=== PATIENT | male | born 1970 | race African-American/Black ===

== ENCOUNTER 2019-07-27 17:49 | Inpatient (IN) | payer OTHER ==
[2019-07-27 23:12] VITALS: BMI 29.9
[2019-07-28] MEDS ORDERED: chlordiazePOXIDE HCL 25 MG CAPSULE PO PRN (00:52)
[2019-07-28] MEDS ORDERED: METHOCARBAMOL 500 MG TABLET PO PRN (00:52)
[2019-07-28] MEDS ORDERED: MAGNESIUM HYDROX 2400MG/30ML ORAL SUSPENSION 30 ML CUP PO PRN (00:52)
[2019-07-28] MEDS ORDERED: BISMUTH SUBSALICYLATE 524 MG/30 ML UD PO PRN (00:52)
[2019-07-28] MEDS ORDERED: ACETAMINOPHEN 325 MG TABLET (FP) PO PRN ×2 (00:52)
[2019-07-28] MEDS ORDERED: hydrOXYzine PAMOATE 25 MG CAPSULE (FP) PO PRN (00:52)
[2019-07-28] MEDS ORDERED: MELATONIN 5 MG TABLETS PO PRN (00:52)
[2019-07-28] MEDS ORDERED: guaiFENesin 200 MG/10 ML 10 ML UNIT-DOSE CUPS PO PRN (00:52)
[2019-07-28] MEDS ORDERED: DICYCLOMINE HCL 10 MG CAPSULE PO PRN (00:52)
[2019-07-28] MEDS ORDERED: MAGNESIUM CITRATE 300 ML BOTTLE PO PRN (00:52)
[2019-07-28] MEDS ORDERED: MENTHOL/PHENOL 1 EACH UD MM PRN (00:52)
[2019-07-28] MEDS ORDERED: MAG HYDROX/AL HYDROX/SIMETH 30 ML UNIT-DOSE CUP PO PRN (00:52)
[2019-07-28] MEDS ORDERED: IBUPROFEN 400 MG TABLET (FP) PO PRN (00:52)
[2019-07-28] MEDS ORDERED: NICOTINE POLACRILEX 2 MG GUM BUC PRN (00:52)
[2019-07-28] MEDS ORDERED: ONDANSETRON *ODT* 4 MG TABLET SL PRN (00:52)
[2019-07-28] MEDS ORDERED: P-EPHED 60MG/TRIPROLIDI 2.5MG TABLET PO PRN (00:52)
--- NOTE | 2019-07-28 01:03 | HP ---
CIWA Score Nausea/Vomitin-No Nausea/No Vomiting Muscle Tremors: None Anxiety: 4-Mod. Anxious/Guarded Agitation: 4-Moderately Restless Paroxysmal Sweats: No Perspiration Orientation: 2-Disoriented Date<2 days Tacttile Disturbances: 2-Mild Itch/Numbness/Burn Auditory Disturbances: 0-None Visual Disturbances: 0-None Headache: 0-None Present CIWA-Ar Total Score: 12 - Admission Criteria OASAS Guidelines: Admission for Medically Managed Detox: Requires at least one of the followin. CIWA greater than 12 2. Seizures within the past 24 hours 3. Delirium tremens within the past 24 hours 4. Hallucinations within the past 24 hours 5. Acute intervention needed for co occurring medical disorder 6. Acute intervention needed for co occurring psychiatric disorder 7. Severe withdrawal that cannot be handled at a lower level of care (continued vomiting, continued diarrhea, abnormal vital signs) requiring intravenous medication and/or fluids 8. Patient presents the following: CIWA greater than 12 Admission Criteria Met: Admission criteria met Admission ROS [facility] Chief Complaint: C/O WORSENING WITHDRAWAL SX'S Allergies/Adverse Reactions: Allergies Allergy/AdvReac Type Severity Reaction Status Date / Time No Known Allergies Allergy Verified 07/27/19 23:04 History of Present Illness: 48 Y.O. MALE WITH ALCOHOLISM HERE FOR DETOX. HE IS REFERRED BY [facility]. HE PRESENTS WITH C/O WORSENING WITHDRAWAL SX'S. HIS HX/O IS CONFLICTING INITIALLY SAID HE WAS SEEKING REHAB THEN NOW HE WANTS DETOX. HE ALSO STATED HE DRINK ABOUT 3 TIME A WEEK MORNINGS ONLY THEN LATER STATING HE DRINKS DAILY. HE HAS HX/O SCHIZOPHRENIA DENIES PRESENT AVH, SI, HI. MOST RECENT CLEAN TIME 3 YEARS RELAPSING 03/2019. CURRENTLY LIVES IN A HALF-WAY, LACKS SUPPORT SYSTEMS, UNEMPLOYED, DENIES LEGALS Exam Limitations: No Limitations - Ebola screening Have you traveled outside of the country in the last 21 days: No (N) Have you had contact with anyone from an Ebola affected area: No Do you have a fever: No - Review of Systems Constitutional: Chills, Night Sweats, Changes in sleep EENT: reports: Other (EYE GLASSES) Respiratory: reports: No Symptoms reported Cardiac: reports: No Symptoms Reported GI: reports: No Symptoms Reported : reports: No Symptoms Reported Musculoskeletal: reports: No Symptoms Reported Integumentary: reports: No Symptoms Reported Neuro: reports: Headache Endocrine: reports: No Symptoms Reported Hematology: reports: No Symptoms Reported Psychiatric: reports: Anxious Other Systems: Reviewed and Negative Patient History - Patient Medical History Hx Anemia: No Hx Asthma: No Hx Chronic Obstructive Pulmonary Disease (COPD): No Hx Cancer: No Hx Cardiac Disorders: No Hx Congestive Heart Failure: No Hx Hypertension: Yes Hx Hypercholesterolemia: No Hx Pacemaker: No HX Cerebrovascular Accident: No Hx Seizures: No Hx Dementia: No Hx Diabetes: No Hx Gastrointestinal Disorders: No Hx Liver Disease: No Hx Genitourinary Disorders: No Hx Sexually Transmitted Disorders: No Hx Renal Disease (ESRD): No Hx Thyroid Disease: No Hx Human Immunodeficiency Virus (HIV): No Hx Hepatitis C: No Hx Bipolar Disorder: Yes Hx Schizophrenia: Yes Other Medical History: DENIES - Patient Surgical History Past Surgical History: No - PPD History Previous Implant?: No Documented Results: Positive w/o proof PPD to be Administered?: No - Smoking Cessation Smoking history: Current every day smoker Have you smoked in the past 12 months: Yes Aproximately how many cigarettes per day: 10 Hx Chewing Tobacco Use: Yes Initiated information on smoking cessation: Yes 'Breaking Loose' booklet given: 07/28/19 - Substance & Tx. History Hx Alcohol Use: Yes Hx Substance Use: Yes Substance Use Type: Alcohol, Cocaine, Marijuana Hx Substance Use Treatment: Yes - Substances abused Alcohol Substance route: Oral Frequency: Daily Amount used: 3 24 oz beers,1pint of rum Age of first use: 14 Date of last use: 07/27/19 Crack Substance route: Smoking Frequency: 3-6 times per week Amount used: $50/day Age of first use: 23 Date of last use: 07/26/19 Cocaine Substance route: Smoking Frequency: 3-6 times per week Amount used: $50/day Age of first use: 23 Date of last use: 07/26/19 Family Disease History - Family Disease History Family History: Denies Admission Physical Exam BHS - Vital Signs Vital Signs: Vital Signs - 24 hr 07/27/19 23:07 Temperature 97.6 F Pulse Rate 65 Respiratory 18 Rate Blood Pressure 170/90 - Physical General Appearance: Yes: Moderate Distress, Tremorous (FELT), Irritable, Anxious HEENTM: Yes: EOMI, Normocephalic, Normal Voice, ANH, Pharynx Normal, Other ( OOR DENTITION MISSING TEETHP) Respiratory: Yes: Chest Non-Tender, Lungs Clear, Normal Breath Sounds, No Respiratory Distress, No Accessory Muscle Use Neck: Yes: No masses,lesions,Nodules, Supple, Trachea in good position Breast: Yes: Breast Exam Deferred Cardiology: Yes: Regular Rhythm, Regular Rate, S1, S2 Abdominal: Yes: Normal Bowel Sounds, Non Tender, Soft Genitourinary: Yes: Within Normal Limits Back: Yes: Normal Inspection Musculoskeletal: Yes: full range of Motion, Gait Steady Extremities: Yes: Normal Capillary Refill, Normal Range of Motion, Non-Tender, Tremors (FELT), Other (UNKEPT TOES NAILS) Neurological: Yes: Fully Oriented, Alert, Motor Strength 5/5 Integumentary: Yes: Dry, Warm Lymphatic: Yes: Within Normal Limits - Diagnostic (1) Alcohol dependence with uncomplicated withdrawal Current Visit: Yes Status: Acute (2) Cocaine dependence, uncomplicated Current Visit: Yes Status: Acute (3) Cannabis dependence, uncomplicated Current Visit: Yes Status: Acute (4) Nicotine dependence Current Visit: Yes Status: Chronic (5) HTN (hypertension) Current Visit: Yes Status: Chronic Qualifiers: Hypertension type: essential hypertension Qualified Code(s): I10 - Essential (primary) hypertension (6) Schizoaffective disorder Current Visit: Yes Status: Ruled-out Qualifiers: Schizoaffective disorder type: bipolar Qualified Code(s): F25.0 - Schizoaffective disorder, bipolar type (7) Substance induced mood disorder Current Visit: Yes Status: Suspected Cleared for Admission S - Detox or Rehab [facility] Level of Care: Medically Managed Detox Regimen/Protocol: Librium Claeared for Rehab Admission: No Breathalyzer - Breathalyzer Breathalyzer: 0 Urine Drug Screen - Test Device Lot number: [id number] Expiration date: 04/10/21 - Control Is test valid?: Yes - Results Drug screen NEGATIVE: No Urine drug screen results: THC-Marijuana, LOPEZ-Cocaine Inpatient Rehab Admission - Rehab Decision to Admit Inpatient rehab admission?: No
[2019-07-28] MEDS: chlordiazePOXIDE HCL 25 MG CAPSULE PO SCH ×4 (06:40→23:15)
[2019-07-28 10:00] LABS: HEMATOCRIT 38.8 % (35.4-49); MCH 30.6 pg (25.7-33.7); MCHC 33.4 g/dl (32.0-35.9); MEAN CELL VOLUME 91.6 fl (80-96); MEAN PLT VOLUME 8.5 fl (7.5-11.1); PLATELET COUNT 272 K/MM3 (134-434); RBC 4.23 M/mm3 (4.00-5.60); RDW 15.4 % (11.9-15.9)
--- NOTE | 2019-07-28 10:09 | EKG ---
Test Reason : Blood Pressure : / mmHG Vent. Rate : 047 BPM Atrial Rate : 047 BPM P-R Int : 180 ms QRS Dur : 088 ms QT Int : 482 ms P-R-T Axes : 060 045 055 degrees QTc Int : 426 ms SINUS BRADYCARDIA NONSPECIFIC T WAVE ABNORMALITY ABNORMAL ECG NO PREVIOUS ECGS AVAILABLE Confirmed by MD Paula, Rubén ([id number]) on 07/28/2019 10:08:46 AM Referred By: Confirmed By:Rubén Mitchell MD
[2019-07-28 10:12] LABS: ALBUMIN 3.4 g/dl (3.4-5.0); BILIRUBIN,TOTAL 0.5 mg/dL (0.2-1); BLOOD UREA NITROGEN 18.2 mg/dL (7-18); CALCIUM 8.9 mg/dL (8.5-10.1); CREATININE 1.2 mg/dL (0.55-1.3); POTASSIUM 3.9 mmol/L (3.5-5.1); TOT PROT 6.6 g/dl (6.4-8.2)
[2019-07-28] MEDS: amLODIPine BESYLATE 10 MG TABLET (FP) PO SCH (10:19)
[2019-07-28] MEDS: ASPIRIN COATED 81 MG TABLET.EC PO SCH (10:19)
[2019-07-28] MEDS: PRENATAL VITAMINS W/ FOLIC ACID TABLET (FP) PO SCH (10:19)
[2019-07-28] MEDS: NICOTINE 14 MG/24 HOURS TOPICAL PATCH TD SCH (10:20)
--- NOTE | 2019-07-28 11:12 | PN ---
S CIWA - CIWA Score Nausea/Vomitin-No Nausea/No Vomiting Muscle Tremors: 3 Anxiety: 2 Agitation: 3 Paroxysmal Sweats: 2 Orientation: 0-Oriented Tacttile Disturbances: 0-None Auditory Disturbances: 0-None Visual Disturbances: 0-None Headache: 0-None Present CIWA-Ar Total Score: 10 S Progress Note (SOAP) Subjective: irritable interrupted sleep tired sweats Objective: 07/28/19 11:11 Vital Signs Temperature 98.1 F 07/28/19 09:11 Pulse Rate 60 07/28/19 09:11 Respiratory Rate 18 07/28/19 09:11 Blood Pressure 150/95 07/28/19 09:11 O2 Sat by Pulse Oximetry (%) Laboratory Tests 07/28/19 07/28/19 08:00 08:00 WBC 6.0 RBC 4.23 Hgb 13.0 Hct 38.8 MCV 91.6 MCH 30.6 MCHC 33.4 RDW 15.4 Plt Count 272 MPV 8.5 Sodium 141 Potassium 3.9 Chloride 106 Carbon Dioxide 31 Anion Gap 4 L BUN 18.2 H Creatinine 1.2 Est GFR (CKD-EPI)AfAm 81.23 Est GFR (CKD-EPI)NonAf 70.09 Random Glucose 73 L Calcium 8.9 Total Bilirubin 0.5 AST 24 ALT 21 Alkaline Phosphatase 69 Total Protein 6.6 Albumin 3.4 labs noted aaox3 ambulating no acute distress Assessment: 07/28/19 11:11 withdrawal sx Plan: continue detox increase fluids
--- NOTE | 2019-07-28 11:26 | CONSULT ---
[facility] Psychiatric Consult - Data Date of interview: 07/28/19 Admission source: [facility] Identifying data: Mr Fallon is a 48 years old single Black male, unemployed receiving SSI, homeless seeking detox treatment for alcohol and cocaine Substance Abuse History: Reports history of alcohol and crack cocaine use. Refer to addiction coundelor's summary for further information Medical History: Significant for hypertension and history of PPD+. Smokes 10 cigarettes daily Psychiatric History: Reports that his first psychiatric contact was at age 24 when he was admitted to [facility] for auditory hallucinations and paranoid delusions. He said that he was diagnosed with Paranoid Schizophrenia and started on Zyprexa. Reports 3 subsequent psychiatric hospitalizations at [facility] twice and most recently 9 years ago at [facility]. Reports receiving outpatient psychiatric treatment at [facility] and he is prescribed Geodon 40 mg/day. Denies previous suicidal attempt. At present, denies expriencing psychotic symptoms, S/H ideations. Physical/Sexual Abuse/Trauma History: Denies history of emotional, physical or sexual abuse as well as DV relationship. No service Additional Comment: Reports mutiple previous arrests including 2 felony convictions. Denies being on parole/probation at present Mental Status Exam - Mental Status Exam Alert and Oriented to: Time, Place, Person Cognitive Function: Fair Patient Appearance: Well Groomed Mood: Hopeful, Euthymic Affect: Blunted Patient Behavior: Cooperative Speech Pattern: Clear Voice Loudness: Normal Thought Process: Intact, Goal Oriented Thought Disorder: Not Present Hallucinations: Denies Suicidal Ideation: Denies Homicidal Ideation: Denies Insight/Judgement: Poor Sleep: Well Appetite: Good Muscle strength/Tone: Normal Gait/Station: Normal Psychiatric Findings - Problem List ([place] 1, 2,3) (1) Paranoid schizophrenia Current Visit: Yes Status: Chronic (2) Schizoaffective disorder Current Visit: Yes Status: Ruled-out Qualifiers: Schizoaffective disorder type: bipolar Qualified Code(s): F25.0 - Schizoaffective disorder, bipolar type (3) Alcohol dependence with uncomplicated withdrawal Current Visit: Yes Status: Acute (4) Cocaine dependence, uncomplicated Current Visit: Yes Status: Acute (5) Nicotine dependence Current Visit: Yes Status: Chronic (6) HTN (hypertension) Current Visit: Yes Status: Chronic Qualifiers: Hypertension type: essential hypertension Qualified Code(s): I10 - Essential (primary) hypertension (7) PPD positive, treated Current Visit: Yes Status: Resolved - Initial Treatment Plan Initial Treatment Plan: 1) Continue Geodon 40 mg po daily. 2) Continue inpatient detoxification
[2019-07-28] MEDS: ZIPRASIDONE 40 MG CAPSULE (FP) PO SCH (13:41)
[2019-07-28] MEDS: THIAMINE HCL 100 MG TABLET (FP) PO SCH (23:15)
[2019-07-29] MEDS: chlordiazePOXIDE HCL 25 MG CAPSULE PO SCH ×4 (05:45→23:19)
[2019-07-29] MEDS: ASPIRIN COATED 81 MG TABLET.EC PO SCH (11:01)
[2019-07-29] MEDS: amLODIPine BESYLATE 10 MG TABLET (FP) PO SCH (11:02)
[2019-07-29] MEDS: PRENATAL VITAMINS W/ FOLIC ACID TABLET (FP) PO SCH (11:02)
[2019-07-29] MEDS: NICOTINE 14 MG/24 HOURS TOPICAL PATCH TD SCH (11:03)
--- NOTE | 2019-07-29 11:38 | PN ---
S CIWA - CIWA Score Nausea/Vomitin Muscle Tremors: 2 Anxiety: 2 Agitation: 2 Paroxysmal Sweats: No Perspiration Orientation: 0-Oriented Tacttile Disturbances: 0-None Auditory Disturbances: 0-None Visual Disturbances: 0-None Headache: 1-Very Mild CIWA-Ar Total Score: 9 BHS Progress Note (SOAP) Subjective: alert,irritable,anxious,interrupted sleep,tremor Objective: 07/29/19 11:37 Vital Signs Temperature 98.1 F 07/29/19 09:09 Pulse Rate 83 07/29/19 09:09 Respiratory Rate 18 07/29/19 09:09 Blood Pressure 155/96 07/29/19 09:09 O2 Sat by Pulse Oximetry (%) 07/29/19 11:37 Laboratory Last Values WBC 6.0 K/mm3 (4.0-10.0) 07/28/19 08:00 RBC 4.23 M/mm3 (4.00-5.60) 07/28/19 08:00 Hgb 13.0 GM/dL (11.7-16.9) 07/28/19 08:00 Hct 38.8 % (35.4-49) 07/28/19 08:00 MCV 91.6 fl (80-96) 07/28/19 08:00 MCH 30.6 pg (25.7-33.7) 07/28/19 08:00 MCHC 33.4 g/dl (32.0-35.9) 07/28/19 08:00 RDW 15.4 % (11.9-15.9) 07/28/19 08:00 Plt Count 272 K/MM3 (134-434) 07/28/19 08:00 MPV 8.5 fl (7.5-11.1) 07/28/19 08:00 Sodium 141 mmol/L (136-145) 07/28/19 08:00 Potassium 3.9 mmol/L (3.5-5.1) 07/28/19 08:00 Chloride 106 mmol/L (98-107) 07/28/19 08:00 Carbon Dioxide 31 mmol/L (21-32) 07/28/19 08:00 Anion Gap 4 MMOL/L (8-16) L 07/28/19 08:00 BUN 18.2 mg/dL (7-18) H 07/28/19 08:00 Creatinine 1.2 mg/dL (0.55-1.3) 07/28/19 08:00 Est GFR (CKD-EPI)AfAm 81.23 07/28/19 08:00 Est GFR (CKD-EPI)NonAf 70.09 07/28/19 08:00 Random Glucose 73 mg/dL (74-106) L 07/28/19 08:00 Calcium 8.9 mg/dL (8.5-10.1) 07/28/19 08:00 Total Bilirubin 0.5 mg/dL (0.2-1) 07/28/19 08:00 AST 24 U/L (15-37) 07/28/19 08:00 ALT 21 U/L (13-61) 07/28/19 08:00 Alkaline Phosphatase 69 U/L (45-117) 07/28/19 08:00 Total Protein 6.6 g/dl (6.4-8.2) 07/28/19 08:00 Albumin 3.4 g/dl (3.4-5.0) 07/28/19 08:00 RPR Titer Nonreactive (NONREACTIVE) 07/28/19 08:00 Assessment: 07/29/19 11:38 withdrawal symptom Plan: continue detox librium regimen,encourage oral fluid bun is 18.2,glucose is 73, repeat bmp in am
[2019-07-29] MEDS: ZIPRASIDONE 40 MG CAPSULE (FP) PO SCH (15:00)
[2019-07-29] MEDS: THIAMINE HCL 100 MG TABLET (FP) PO SCH (23:20)
[2019-07-30] MEDS ORDERED: chlordiazePOXIDE HCL 10 MG CAPSULE PO PRN
[2019-07-30] MEDS: chlordiazePOXIDE HCL 10 MG CAPSULE PO SCH ×4 (05:37→22:14)
[2019-07-30] MEDS: ASPIRIN COATED 81 MG TABLET.EC PO SCH (11:03)
[2019-07-30] MEDS: amLODIPine BESYLATE 10 MG TABLET (FP) PO SCH (11:03)
[2019-07-30] MEDS: PRENATAL VITAMINS W/ FOLIC ACID TABLET (FP) PO SCH (11:03)
[2019-07-30] MEDS: NICOTINE 14 MG/24 HOURS TOPICAL PATCH TD SCH (11:03)
[2019-07-30] MEDS: ZIPRASIDONE 40 MG CAPSULE (FP) PO SCH (11:04)
[2019-07-30 11:33] LABS: BLOOD UREA NITROGEN 11.4 mg/dL (7-18); CALCIUM 8.9 mg/dL (8.5-10.1); CREATININE 1.1 mg/dL (0.55-1.3); POTASSIUM 3.7 mmol/L (3.5-5.1)
--- NOTE | 2019-07-30 13:08 | PN ---
S CIWA - CIWA Score Nausea/Vomitin-No Nausea/No Vomiting Muscle Tremors: 2 Anxiety: 1-Mildly Anxious Agitation: 1-Slight > Activity Paroxysmal Sweats: 2 Orientation: 0-Oriented Tacttile Disturbances: 0-None Auditory Disturbances: 0-None Visual Disturbances: 0-None Headache: 0-None Present CIWA-Ar Total Score: 6 BHS Progress Note (SOAP) Subjective: sweats body aches interrupted sleep Objective: 07/30/19 13:08 Vital Signs Temperature 95.7 F L 07/30/19 09:12 Pulse Rate 75 07/30/19 09:12 Respiratory Rate 16 07/30/19 09:12 Blood Pressure 152/91 07/30/19 09:12 O2 Sat by Pulse Oximetry (%) aaox3 ambulating no acute distress Assessment: 07/30/19 13:08 withdrawals Plan: continue detox increase fluids
[2019-07-30] MEDS: THIAMINE HCL 100 MG TABLET (FP) PO SCH (22:14)
[2019-07-31] MEDS: chlordiazePOXIDE HCL 10 MG CAPSULE PO SCH ×2 (05:26→17:08)
[2019-07-31] MEDS: amLODIPine BESYLATE 10 MG TABLET (FP) PO SCH (10:29)
[2019-07-31] MEDS: NICOTINE 14 MG/24 HOURS TOPICAL PATCH TD SCH (10:29)
[2019-07-31] MEDS: PRENATAL VITAMINS W/ FOLIC ACID TABLET (FP) PO SCH (10:29)
[2019-07-31] MEDS: ASPIRIN COATED 81 MG TABLET.EC PO SCH (10:29)
[2019-07-31] MEDS: ZIPRASIDONE 40 MG CAPSULE (FP) PO SCH (10:29)
--- NOTE | 2019-07-31 11:01 | PN ---
S CIWA - CIWA Score Nausea/Vomitin-No Nausea/No Vomiting Muscle Tremors: 1-None Visible, but [place] Anxiety: 1-Mildly Anxious Agitation: 1-Slight > Activity Paroxysmal Sweats: No Perspiration Orientation: 0-Oriented Tacttile Disturbances: 0-None Auditory Disturbances: 0-None Visual Disturbances: 0-None Headache: 1-Very Mild CIWA-Ar Total Score: 4 BHS Progress Note (SOAP) Subjective: alert,irritable,anxious,interrupted sleep Objective: 07/31/19 11:00 Vital Signs Temperature 98.3 F 07/31/19 09:43 Pulse Rate 76 07/31/19 09:43 Respiratory Rate 18 07/31/19 09:43 Blood Pressure 145/88 07/31/19 09:43 O2 Sat by Pulse Oximetry (%) Assessment: 07/31/19 11:00 withdrawal symptom Plan: continue detox librium regimen,discharge in am
[2019-07-31] MEDS: THIAMINE HCL 100 MG TABLET (FP) PO SCH (22:32)
[2019-08-01] MEDS ORDERED: chlordiazePOXIDE HCL 10 MG CAPSULE PO ONE (05:00)
[2019-08-01 09:37] VITALS: BP 116/75; PULSE 81; TEMP 97.7
[2019-08-01] MEDS: ZIPRASIDONE 40 MG CAPSULE (FP) PO SCH (10:22)
[2019-08-01] MEDS: amLODIPine BESYLATE 10 MG TABLET (FP) PO SCH (10:22)
[2019-08-01] MEDS: NICOTINE 14 MG/24 HOURS TOPICAL PATCH TD SCH (10:23)
[2019-08-01] MEDS: PRENATAL VITAMINS W/ FOLIC ACID TABLET (FP) PO SCH (10:24)
[2019-08-01] MEDS: ASPIRIN COATED 81 MG TABLET.EC PO SCH (11:41)
--- NOTE | 2019-08-01 14:06 | DS ---
[facility] Detox Discharge Summary Admission Date: 07/28/19 Discharge Date: 08/01/19 - History Present History: Alcohol Dependence, Cannabis Dependence, Cocaine Dependence Additional Comments: Pt is medically cleared and is discharged today. Pt completed his detox protocol. Pt was for discharge to [facility] rehab but due to bed unavailability pt will come back for admission to [facility] on Saturday (). Process explained to pt by the counselor. Pt verbalized understanding. Pt is alert and oriented x3 and in no respiratory distress. Pertinent Past History: H/O HTN, alcohol, cannabis, and cocaine use disorder. - Physical Exam Results Vital Signs: Vital Signs Temperature 97.7 F 08/01/19 09:36 Pulse Rate 81 08/01/19 09:36 Respiratory Rate 18 08/01/19 09:36 Blood Pressure 116/75 08/01/19 09:36 O2 Sat by Pulse Oximetry (%) Vital Signs 08/01/19 09:36 Temperature 97.7 F Pulse Rate 81 Respiratory 18 Rate Blood Pressure 116/75 Lab Results WBC 6.0 K/mm3 (4.0-10.0) 07/28/19 08:00 RBC 4.23 M/mm3 (4.00-5.60) 07/28/19 08:00 Hgb 13.0 GM/dL (11.7-16.9) 07/28/19 08:00 Hct 38.8 % (35.4-49) 07/28/19 08:00 MCV 91.6 fl (80-96) 07/28/19 08:00 MCHC 33.4 g/dl (32.0-35.9) 07/28/19 08:00 RDW 15.4 % (11.9-15.9) 07/28/19 08:00 Plt Count 272 K/MM3 (134-434) 07/28/19 08:00 Sodium 142 mmol/L (136-145) 07/30/19 07:50 Potassium 3.7 mmol/L (3.5-5.1) 07/30/19 07:50 Chloride 105 mmol/L (98-107) 07/30/19 07:50 Carbon Dioxide 32 mmol/L (21-32) 07/30/19 07:50 Anion Gap 6 MMOL/L (8-16) L 07/30/19 07:50 BUN 11.4 mg/dL (7-18) 07/30/19 07:50 Creatinine 1.1 mg/dL (0.55-1.3) 07/30/19 07:50 Random Glucose 78 mg/dL (74-106) 07/30/19 07:50 Calcium 8.9 mg/dL (8.5-10.1) 07/30/19 07:50 Labs noted. - Treatment Hospital Course: Detox Protocol Followed, Detoxed Safely, Responded well, Discharged Condition Good, Rehab Referral Accepted - Medication Discharge Medications: Ambulatory Orders Amlodipine Besylate 10 mg PO DAILY 07/27/19 Aspirin EC 81 mg PO DAILY 07/27/19 - Diagnosis (1) Alcohol dependence with uncomplicated withdrawal Current Visit: Yes Status: Acute (2) Cannabis dependence, uncomplicated Current Visit: Yes Status: Acute (3) Cocaine dependence, uncomplicated Current Visit: Yes Status: Acute (4) HTN (hypertension) Current Visit: Yes Status: Chronic Qualifiers: Hypertension type: essential hypertension Qualified Code(s): I10 - Essential (primary) hypertension (5) Nicotine dependence Current Visit: Yes Status: Chronic - AMA Did Patient Leave Against Medical Advice: No S CIWA - CIWA Score Nausea/Vomitin-No Nausea/No Vomiting Muscle Tremors: None Anxiety: 2 Agitation: 1-Slight > Activity Paroxysmal Sweats: No Perspiration Orientation: 0-Oriented Tacttile Disturbances: 0-None Auditory Disturbances: 0-None Visual Disturbances: 0-None Headache: 0-None Present CIWA-Ar Total Score: 3
== END 2019-08-01 12:30 | disposition home or self-care (01) | DRG 774 ==
LOC: YASAS 17:49 → Y6N 07-28 01:38
PROVIDERS: ADMIT Surgery; ATTEND Surgery
PROC: HZ2ZZZZ Detoxification Services for Substance Abuse Treatment (ICD-10-PCS; principal; 2019-07-28)
DX: F10.230 Alcohol dependence with withdrawal, uncomplicated (principal); F14.20 Cocaine dependence, uncomplicated; F12.20 Cannabis dependence, uncomplicated; F17.210 Nicotine dependence, cigarettes, uncomplicated; F20.0 Paranoid schizophrenia; F31.9 Bipolar disorder, unspecified; I10 Essential (primary) hypertension; R76.11 Nonspecific reaction to tuberculin skin test without active tuberculosis
CPT/HCPCS: 36415; 71046-TC-FY; 80048; 80053; 85027; 86593; 93005; 93010

== ENCOUNTER 2019-08-03 08:19 | Inpatient (IN) | payer OTHER ==
[2019-08-03 08:41] VITALS: BMI 31.1
--- NOTE | 2019-08-03 09:05 | HP ---
CIWA Score Nausea/Vomitin-No Nausea/No Vomiting Muscle Tremors: None Anxiety: 1-Mildly Anxious Agitation: 1-Slight > Activity Paroxysmal Sweats: 1-Minimal Palms Moist Orientation: 0-Oriented Tacttile Disturbances: 0-None Auditory Disturbances: 0-None Visual Disturbances: 0-None Headache: 0-None Present (appropriate for rehabilitation) CIWA-Ar Total Score: 3 - Admission Criteria OASAS Guidelines: Admission for Medically Managed Detox: Requires at least one of the followin. CIWA greater than 12 2. Seizures within the past 24 hours 3. Delirium tremens within the past 24 hours 4. Hallucinations within the past 24 hours 5. Acute intervention needed for co occurring medical disorder 6. Acute intervention needed for co occurring psychiatric disorder 7. Severe withdrawal that cannot be handled at a lower level of care (continued vomiting, continued diarrhea, abnormal vital signs) requiring intravenous medication and/or fluids 8. Admission ROS [facility] - [facility] Chief Complaint: " I want to go to rehab. I just finished detox. I can't do it by myself and I need help to stay clean." Allergies/Adverse Reactions: Allergies Allergy/AdvReac Type Severity Reaction Status Date / Time No Known Allergies Allergy Verified 08/03/19 08:32 History of Present Illness: 48 year old black male with alcohol dependence who wishes to enter rehab and then proceed to an outpatient program. Patient drinks 3 24 ounce cans daily. After detox he relapsed within 2 days. He's been drinking since he was 14 years old and became problematic at 17 years of age. Last drank yesterday. Marijuana dependence but hasn't smoked for many years. He smoked for a total of 12 years. Smokes ciggarrettes 1/3 pack per day, has been smoking since he was 14 years old , last smoked yesterday. PMH:HTN Psych HX: Schizophrenia, Anxiety/ Depression. on Geodon 40 mg and Cogentin 2 mg daily. Psurg Hx: Tonsillectormy as a child He's had residential living for many years but then lost it and had to move back with his mother. He is now homeless and recently entered the jail system. - Ebola screening Have you traveled outside of the country in the last 21 days: No Have you had contact with anyone from an Ebola affected area: No Have you been sick,other than usual withdrawal symptoms: No Do you have a fever: No - Review of Systems Constitutional: No Symptoms Reported EENT: reports: No Symptoms Reported Respiratory: reports: No Symptoms reported Cardiac: reports: No Symptoms Reported GI: reports: No Symptoms Reported : reports: Flank Pain Musculoskeletal: reports: No Symptoms Reported Integumentary: reports: No Symptoms Reported Neuro: reports: No Symptoms reported Endocrine: reports: No Symptoms Reported Hematology: reports: No Symptoms Reported Psychiatric: reports: Mood/Affect Appropiate, Orientated x3 Other Systems: Reviewed and Negative Patient History - Patient Medical History Hx Anemia: No Hx Asthma: No Hx Chronic Obstructive Pulmonary Disease (COPD): No Hx Cancer: No Hx Cardiac Disorders: No Hx Congestive Heart Failure: No Hx Hypertension: Yes Hx Hypercholesterolemia: No Hx Pacemaker: No HX Cerebrovascular Accident: No Hx Seizures: No Hx Dementia: No Hx Diabetes: No Hx Gastrointestinal Disorders: No Hx Liver Disease: No Hx Genitourinary Disorders: No Hx Sexually Transmitted Disorders: No Hx Renal Disease (ESRD): No Hx Thyroid Disease: No Hx Human Immunodeficiency Virus (HIV): No Hx Hepatitis C: No Hx Bipolar Disorder: Yes Hx Schizophrenia: Yes - Patient Surgical History Past Surgical History: No - PPD History Previous Implant?: No Documented Results: Positive w/proof - Smoking Cessation Smoking history: Current every day smoker Have you smoked in the past 12 months: Yes Aproximately how many cigarettes per day: 10 Cigars Per Day: 10 Hx Chewing Tobacco Use: Yes Initiated information on smoking cessation: Yes 'Breaking Loose' booklet given: 08/05/19 - Substances abused Alcohol Substance route: Oral Frequency: Daily Amount used: 3-4 24 oz beers & 1pint of rum Age of first use: 14 Date of last use: 08/02/19 Crack Substance route: Smoking Frequency: 3-6 times per week Amount used: 3-4 bags Age of first use: 23 Date of last use: 08/01/19 Cocaine Substance route: Smoking Frequency: 3-6 times per week Amount used: $50/day Age of first use: 23 Date of last use: 07/26/19 Admission Physical Exam BHS - Vital Signs Vital Signs: Vital Signs - 24 hr 08/03/19 08:35 Temperature 97.2 F L Pulse Rate 77 Respiratory 18 Rate Blood Pressure 158/91 - Physical General Appearance: Yes: No Apparent Distress HEENTM: Yes: EOMI, Hearing grossly Normal, Normal ENT Inspection, Normocephalic , ANH, Pharynx Normal Respiratory: Yes: Chest Non-Tender, Lungs Clear, Normal Breath Sounds, No Respiratory Distress, No Accessory Muscle Use Neck: Yes: No masses,lesions,Nodules, Supple, Trachea in good position Breast: Yes: Within Normal Limits, Axillae without masses, Breasts Symetrical, No Discharge Cardiology: Yes: Regular Rhythm, Regular Rate, S1, S2 Abdominal: Yes: Normal Bowel Sounds, Soft, Protuberent Genitourinary: Yes: Within Normal Limits Back: Yes: Normal Inspection Musculoskeletal: Yes: full range of Motion, Gait Steady, Pelvis Stable Extremities: Yes: Normal Capillary Refill, Normal Inspection, Normal Range of Motion, Non-Tender Neurological: Yes: printing estimator II-XII NML intact, Fully Oriented, Alert, Motor Strength 5/5, Normal Mood/Affect Integumentary: Yes: Normal Color, Warm Lymphatic: Yes: Within Normal Limits - Diagnostic (1) Cannabis dependence, uncomplicated Current Visit: No Status: Acute (2) HTN (hypertension) Current Visit: No Status: Chronic Qualifiers: Hypertension type: essential hypertension Qualified Code(s): I10 - Essential (primary) hypertension (3) Nicotine dependence Current Visit: Yes Status: Chronic (4) PPD positive, treated Current Visit: No Status: Resolved (5) Schizoaffective disorder Current Visit: No Status: Ruled-out Qualifiers: Schizoaffective disorder type: bipolar Qualified Code(s): F25.0 - Schizoaffective disorder, bipolar type Cleared for Admission [facility] - Detox or Rehab [facility] Level of Care: Medically Supervised Screened but not Admitted - Documentation of Visit Screened but not Admitted: No Breathalyzer - Breathalyzer Breathalyzer: 0 Vital Signs - Vital Signs Vital signs refused: No Temperature: 97.2 F Temperature source: Oral Pulse Rate: 77 Respiratory Rate: 18 Blood Pressure: 158/91 BP Location: Left Arm Blood Pressure position: Sitting - Height Height: 5 ft 6 in - Weight Weight: 193 lb Weight measurement method: Standing scale - BMI Body Mass Index (BMI): 31.1 - Bowel Function Bowel Movement: Yes Urine Drug Screen - Test Device Lot number: [id number] Expiration date: 04/10/21 - Control Is test valid?: Yes - Results Drug screen NEGATIVE: Yes Urine drug screen results: THC-Marijuana, BZO-Benzodiazepines Inpatient Rehab Admission - Rehab Decision to Admit Inpatient rehab admission?: Yes - Initial Determination Are CD services needed?: Yes Free of communicable disease: Yes Not in need of hospitalization: Yes - Rehab Admission Criteria Previous failed treatment: Yes Poor recovery environment: Yes Comorbidities: Yes Lacks judgement: Yes Patient is meeting Inpatient Rehab admission criteria:: Yes
[2019-08-03] MEDS ORDERED: LOPERAMIDE HCL 2 MG CAPSULE PO PRN (09:13)
[2019-08-03] MEDS ORDERED: ACETAMINOPHEN 325 MG TABLET (FP) PO PRN (09:13)
[2019-08-03] MEDS ORDERED: MAGNESIUM HYDROX 2400MG/30ML ORAL SUSPENSION 30 ML CUP PO PRN (09:13)
[2019-08-03] MEDS ORDERED: guaiFENesin 200 MG/10 ML 10 ML UNIT-DOSE CUPS PO PRN (09:13)
[2019-08-03] MEDS ORDERED: MAG HYDROX/AL HYDROX/SIMETH 30 ML UNIT-DOSE CUP PO PRN (09:13)
[2019-08-03] MEDS ORDERED: MENTHOL/PHENOL 1 EACH UD MM PRN (09:13)
[2019-08-03] MEDS ORDERED: IBUPROFEN 400 MG TABLET (FP) PO PRN (09:13)
[2019-08-03] MEDS ORDERED: P-EPHED 60MG/TRIPROLIDI 2.5MG TABLET PO PRN (09:13)
[2019-08-03] MEDS ORDERED: MAGNESIUM CITRATE 300 ML BOTTLE PO PRN (09:13)
[2019-08-03] MEDS: NICOTINE 7 MG/24 HOURS TOPICAL PATCH TD SCH (12:41)
[2019-08-03] MEDS: ASPIRIN COATED 81 MG TABLET.EC PO SCH (12:41)
[2019-08-03] MEDS: amLODIPine BESYLATE 10 MG TABLET (FP) PO SCH (12:41)
[2019-08-03 12:42] LABS: HEMATOCRIT 42.2 % (35.4-49); HEMOGLOBIN 13.8 GM/dL (11.7-16.9); MCH 30.2 pg (25.7-33.7); MCHC 32.7 g/dl (32.0-35.9); MEAN CELL VOLUME 92.4 fl (80-96); MEAN PLT VOLUME 8.8 fl (7.5-11.1); PLATELET COUNT 285 K/MM3 (134-434); RBC 4.57 M/mm3 (4.00-5.60); RDW 15.3 % (11.9-15.9)
[2019-08-03] MEDS: PRENATAL VITAMINS W/ FOLIC ACID TABLET (FP) PO SCH (12:42)
[2019-08-03 12:54] LABS: ALBUMIN 3.7 g/dl (3.4-5.0); BILIRUBIN,TOTAL 0.4 mg/dL (0.2-1); BLOOD UREA NITROGEN 12.3 mg/dL (7-18); CREATININE 1.1 mg/dL (0.55-1.3); POTASSIUM 3.8 mmol/L (3.5-5.1); TOT PROT 7.3 g/dl (6.4-8.2)
[2019-08-03] MEDS: ZIPRASIDONE 40 MG CAPSULE (FP) PO SCH (14:15)
[2019-08-03] MEDS: BENZTROPINE MESYLATE 1 MG TABLET (FP) PO SCH (14:17)
[2019-08-03] MEDS: THIAMINE HCL 100 MG TABLET (FP) PO SCH (22:22)
--- NOTE | 2019-08-04 09:26 | CONSULT ---
[facility] Psychiatric Consult - Data Date of interview: 08/04/19 Admission source: [facility] Identifying data: Patient is a 48 year old single male, without children, unemployed, homeless, and is supported by [facility]. This is patient's first admission to rehab at [facility]. Patient admitted to for alcohol and cocaine dependence. Substance Abuse History: Smoking Cessation. Smoking history: Current every day smoker. Have you smoked in the past 12 months: Yes. Aproximately how many cigarettes per day: 10. Hx Chewing Tobacco Use: Yes. Initiated information on smoking cessation: Yes. 'Breaking Loose' booklet given: 07/28/19. - Substance & Tx. History. Hx Alcohol Use: Yes. Hx Substance Use: Yes. Substance Use Type : Alcohol, Cocaine, Marijuana. Hx Substance Use Treatment: Yes. - Substances abused. Alcohol. Substance route: Oral. Frequency: Daily. Amount used: 3 24 oz beers,1pint of rum. Age of first use: 14. Date of last use: 07/27/19. * * Crack. Substance route: Smoking. Frequency: 3-6 times per week. Amount used : $50/day. Age of first use: 23. Date of last use: 07/26/19. Cocaine. Substance route: Smoking. Frequency: 3-6 times per week. Amount used: $50/ day. Age of first use: 23. Date of last use: 07/26/19 Medical History: Significant for hypertension and history of PPD+ Psychiatric History: Patient's first psychiatric contact occured at approximately 24 years of age after he started experiencing auditory hallucinations and paranoid delusions and had to be admitted to [facility]. Mr. Fallon was diagnosed with paranoid schizophrenia and started on zyprexa. Patient reports three additional hospitalizations at [facility]. One of the three hospitalizations was to due auditory hallucinations and the other two were for detox/rehab. Mr. Fallon's most recent psychiatric hospitalization was approximately 10 years ago at [facility]. Patient is currently provided with outpatient psychiatric care at [facility] on [address] [place] [address] in the [place] and is prescribed geodon 40mg + Cogentin 20mg daily. Patient denies h/o suicide attempt. At present, patient denies auditory/ visual hallucinations, paranoid ideations. Physical/Sexual Abuse/Trauma History: denies. Mental Status Exam - Mental Status Exam Alert and Oriented to: Time, Place, Person Cognitive Function: Good Patient Appearance: Well Groomed Mood: Euthymic Affect: Appropriate Patient Behavior: Cooperative Speech Pattern: Appropriate Voice Loudness: Normal Thought Process: Goal Oriented Thought Disorder: Not Present Hallucinations: Denies Suicidal Ideation: Denies Homicidal Ideation: Denies Insight/Judgement: Poor Sleep: Fair Appetite: Fair Muscle strength/Tone: Normal Gait/Station: Normal Psychiatric Findings - Problem List ([place] 1, 2,3) (1) Alcohol dependence Current Visit: Yes Status: Acute (2) Paranoid schizophrenia Current Visit: Yes Status: Chronic (3) Cannabis dependence Current Visit: Yes Status: Acute (4) Cocaine dependence, uncomplicated Current Visit: Yes Status: Acute (5) Nicotine dependence Current Visit: Yes Status: Chronic - Initial Treatment Plan Initial Treatment Plan: Psychoeducation provided. Will continue Geodon 40mg + Cogentin 2mg daily. Benefits and side effects discussed. Verbal consent given.
[2019-08-04] MEDS: amLODIPine BESYLATE 10 MG TABLET (FP) PO SCH (10:29)
[2019-08-04] MEDS: PRENATAL VITAMINS W/ FOLIC ACID TABLET (FP) PO SCH (10:29)
[2019-08-04] MEDS: BENZTROPINE MESYLATE 1 MG TABLET (FP) PO SCH (10:29)
[2019-08-04] MEDS: ASPIRIN COATED 81 MG TABLET.EC PO SCH (10:29)
[2019-08-04] MEDS: NICOTINE 7 MG/24 HOURS TOPICAL PATCH TD SCH (10:34)
[2019-08-04] MEDS: ZIPRASIDONE 40 MG CAPSULE (FP) PO SCH (11:42)
[2019-08-04] MEDS: THIAMINE HCL 100 MG TABLET (FP) PO SCH (21:57)
[2019-08-04] MEDS: MELATONIN 5 MG TABLETS PO PRN (21:57)
[2019-08-05] MEDS: NICOTINE 7 MG/24 HOURS TOPICAL PATCH TD SCH (10:45)
[2019-08-05] MEDS: BENZTROPINE MESYLATE 1 MG TABLET (FP) PO SCH (10:46)
[2019-08-05] MEDS: PRENATAL VITAMINS W/ FOLIC ACID TABLET (FP) PO SCH (10:46)
[2019-08-05] MEDS: amLODIPine BESYLATE 10 MG TABLET (FP) PO SCH (10:48)
[2019-08-05] MEDS: ZIPRASIDONE 40 MG CAPSULE (FP) PO SCH (10:48)
[2019-08-05] MEDS: ASPIRIN COATED 81 MG TABLET.EC PO SCH (10:49)
[2019-08-05 17:20] LABS: URINE APPEARANCE CLEAR; URINE BILIRUBIN NEGATIVE (NEGATIVE); URINE COLOR YELLOW; URINE GLUCOSE (UA) NEGATIVE (NEGATIVE); URINE KETONE NEGATIVE (NEGATIVE); URINE LEUK ESTERASE NEGATIVE (NEGATIVE); URINE NITRITE NEGATIVE (NEGATIVE); URINE PROTEIN NEGATIVE (NEGATIVE); URINE UROBILINOGEN 0.2 mg/dL (0.2-1.0)
[2019-08-05] MEDS: THIAMINE HCL 100 MG TABLET (FP) PO SCH (21:49)
[2019-08-05] MEDS: MELATONIN 5 MG TABLETS PO PRN (21:49)
[2019-08-06] MEDS: PRENATAL VITAMINS W/ FOLIC ACID TABLET (FP) PO SCH (10:56)
[2019-08-06] MEDS: BENZTROPINE MESYLATE 1 MG TABLET (FP) PO SCH (10:57)
[2019-08-06] MEDS: amLODIPine BESYLATE 10 MG TABLET (FP) PO SCH (10:57)
[2019-08-06] MEDS: ASPIRIN COATED 81 MG TABLET.EC PO SCH (10:57)
[2019-08-06] MEDS: NICOTINE 7 MG/24 HOURS TOPICAL PATCH TD SCH (10:59)
[2019-08-06] MEDS: ZIPRASIDONE 40 MG CAPSULE (FP) PO SCH (10:59)
[2019-08-06] MEDS: MELATONIN 5 MG TABLETS PO PRN (21:48)
[2019-08-06] MEDS: THIAMINE HCL 100 MG TABLET (FP) PO SCH (21:48)
[2019-08-07] MEDS: PRENATAL VITAMINS W/ FOLIC ACID TABLET (FP) PO SCH (10:55)
[2019-08-07] MEDS: amLODIPine BESYLATE 10 MG TABLET (FP) PO SCH (10:55)
[2019-08-07] MEDS: BENZTROPINE MESYLATE 1 MG TABLET (FP) PO SCH (10:56)
[2019-08-07] MEDS: NICOTINE 7 MG/24 HOURS TOPICAL PATCH TD SCH (10:56)
[2019-08-07] MEDS: ASPIRIN COATED 81 MG TABLET.EC PO SCH (10:56)
[2019-08-07] MEDS: ZIPRASIDONE 40 MG CAPSULE (FP) PO SCH (10:56)
[2019-08-07] MEDS: THIAMINE HCL 100 MG TABLET (FP) PO SCH (21:49)
[2019-08-07] MEDS: MELATONIN 5 MG TABLETS PO PRN (21:49)
[2019-08-08] MEDS ORDERED: cloNIDine HCL 0.1 MG TABLET PO ONE (06:14)
--- NOTE | 2019-08-08 06:17 | PN ---
S Progress Note Note: Patient's blood pressure is b/P 1160/85. Patient is asymptomatic Vital Signs Temperature 97.9 F 08/08/19 06:13 Pulse Rate 82 08/08/19 06:13 Respiratory Rate 18 08/08/19 06:13 Blood Pressure 160/87 08/08/19 06:13 O2 Sat by Pulse Oximetry (%) Action: Clonidine 0.1mg tablet oral order
[2019-08-08] MEDS: NICOTINE 7 MG/24 HOURS TOPICAL PATCH TD SCH (10:43)
[2019-08-08] MEDS: BENZTROPINE MESYLATE 1 MG TABLET (FP) PO SCH (10:43)
[2019-08-08] MEDS: amLODIPine BESYLATE 10 MG TABLET (FP) PO SCH (10:44)
[2019-08-08] MEDS: ZIPRASIDONE 40 MG CAPSULE (FP) PO SCH (10:46)
[2019-08-08] MEDS: PRENATAL VITAMINS W/ FOLIC ACID TABLET (FP) PO SCH (10:46)
[2019-08-08] MEDS: ASPIRIN COATED 81 MG TABLET.EC PO SCH (10:46)
[2019-08-08] MEDS: MELATONIN 5 MG TABLETS PO PRN (21:32)
[2019-08-08] MEDS: THIAMINE HCL 100 MG TABLET (FP) PO SCH (21:32)
[2019-08-09] MEDS: BENZTROPINE MESYLATE 1 MG TABLET (FP) PO SCH (10:30)
[2019-08-09] MEDS: ASPIRIN COATED 81 MG TABLET.EC PO SCH (10:31)
[2019-08-09] MEDS: amLODIPine BESYLATE 10 MG TABLET (FP) PO SCH (10:31)
[2019-08-09] MEDS: ZIPRASIDONE 40 MG CAPSULE (FP) PO SCH (10:31)
[2019-08-09] MEDS: NICOTINE 7 MG/24 HOURS TOPICAL PATCH TD SCH (10:32)
[2019-08-09] MEDS: PRENATAL VITAMINS W/ FOLIC ACID TABLET (FP) PO SCH (10:33)
[2019-08-09] MEDS: THIAMINE HCL 100 MG TABLET (FP) PO SCH (21:38)
[2019-08-09] MEDS: MELATONIN 5 MG TABLETS PO PRN (21:38)
[2019-08-10] MEDS: NICOTINE 7 MG/24 HOURS TOPICAL PATCH TD SCH (11:27)
[2019-08-10] MEDS: ASPIRIN COATED 81 MG TABLET.EC PO SCH (11:27)
[2019-08-10] MEDS: ZIPRASIDONE 40 MG CAPSULE (FP) PO SCH (11:27)
[2019-08-10] MEDS: amLODIPine BESYLATE 10 MG TABLET (FP) PO SCH (11:27)
[2019-08-10] MEDS: BENZTROPINE MESYLATE 1 MG TABLET (FP) PO SCH (12:29)
[2019-08-10] MEDS: PRENATAL VITAMINS W/ FOLIC ACID TABLET (FP) PO SCH (12:29)
[2019-08-10] MEDS: THIAMINE HCL 100 MG TABLET (FP) PO SCH (21:46)
[2019-08-10] MEDS: MELATONIN 5 MG TABLETS PO PRN (21:47)
[2019-08-11] MEDS: ZIPRASIDONE 40 MG CAPSULE (FP) PO SCH (10:54)
[2019-08-11] MEDS: ASPIRIN COATED 81 MG TABLET.EC PO SCH (10:54)
[2019-08-11] MEDS: BENZTROPINE MESYLATE 1 MG TABLET (FP) PO SCH (10:54)
[2019-08-11] MEDS: PRENATAL VITAMINS W/ FOLIC ACID TABLET (FP) PO SCH (10:55)
[2019-08-11] MEDS: NICOTINE 7 MG/24 HOURS TOPICAL PATCH TD SCH (10:55)
[2019-08-11] MEDS: amLODIPine BESYLATE 10 MG TABLET (FP) PO SCH (10:55)
--- NOTE | 2019-08-11 12:16 | PN ---
S Progress Note Note: VS Reviewed with elevated BP. Spoke with Pt who reports he takes two BP meds but does not remember the second. Pt is currently on Norvasc 10 mg po daily. This functional tester typewriters Contacted Pt's home [facility] at [address] [place] [address]. Ph: [phone] who confirmed pt is on Hydrochlorothiazide 12.5 mg po daily and Norvasc 10 mg po daily. Reports postings of HCTZ 12.5 mg in March and June 2019 x 30 days each. Pt denies dizziness,headache or sob. Vital Signs - 24 hr 08/11/19 08/11/19 08/11/19 00:30 03:30 07:18 Temperature 97.8 F Pulse Rate 77 Respiratory 18 18 18 Rate Blood Pressure 160/93 08/11/19 11:52 Temperature 98.1 F Pulse Rate 77 Respiratory 18 Rate Blood Pressure 153/83 Alert o x 3 oob ambulating with steady gait A/P Hx HTN Uncontrolled Restart/Add Hydrochlorothiazide 12.5 mg po daily. First dose now.
[2019-08-11] MEDS ORDERED: HYDROCHLOROTHIAZIDE 12.5 MG CAPSULE (FP) PO ONE (12:40)
[2019-08-11] MEDS: MELATONIN 5 MG TABLETS PO PRN (21:52)
[2019-08-11] MEDS: THIAMINE HCL 100 MG TABLET (FP) PO SCH (21:52)
[2019-08-12] MEDS: HYDROCHLOROTHIAZIDE 12.5 MG CAPSULE (FP) PO SCH (10:45)
[2019-08-12] MEDS: ASPIRIN COATED 81 MG TABLET.EC PO SCH (10:45)
[2019-08-12] MEDS: PRENATAL VITAMINS W/ FOLIC ACID TABLET (FP) PO SCH (10:45)
[2019-08-12] MEDS: NICOTINE 7 MG/24 HOURS TOPICAL PATCH TD SCH (10:46)
[2019-08-12] MEDS: BENZTROPINE MESYLATE 1 MG TABLET (FP) PO SCH (10:46)
[2019-08-12] MEDS: amLODIPine BESYLATE 10 MG TABLET (FP) PO SCH (10:46)
[2019-08-12] MEDS: ZIPRASIDONE 40 MG CAPSULE (FP) PO SCH (10:46)
[2019-08-12] MEDS: THIAMINE HCL 100 MG TABLET (FP) PO SCH (21:50)
[2019-08-12] MEDS: MELATONIN 5 MG TABLETS PO PRN (21:50)
[2019-08-13] MEDS: HYDROCHLOROTHIAZIDE 12.5 MG CAPSULE (FP) PO SCH (10:40)
[2019-08-13] MEDS: ASPIRIN COATED 81 MG TABLET.EC PO SCH (10:41)
[2019-08-13] MEDS: PRENATAL VITAMINS W/ FOLIC ACID TABLET (FP) PO SCH (10:41)
[2019-08-13] MEDS: ZIPRASIDONE 40 MG CAPSULE (FP) PO SCH (10:41)
[2019-08-13] MEDS: BENZTROPINE MESYLATE 1 MG TABLET (FP) PO SCH (10:41)
[2019-08-13] MEDS: NICOTINE 7 MG/24 HOURS TOPICAL PATCH TD SCH (10:41)
[2019-08-13] MEDS: amLODIPine BESYLATE 10 MG TABLET (FP) PO SCH (10:41)
[2019-08-13] MEDS: THIAMINE HCL 100 MG TABLET (FP) PO SCH (22:03)
[2019-08-13] MEDS: MELATONIN 5 MG TABLETS PO PRN (22:03)
[2019-08-14] MEDS: ASPIRIN COATED 81 MG TABLET.EC PO SCH (11:03)
[2019-08-14] MEDS: BENZTROPINE MESYLATE 1 MG TABLET (FP) PO SCH (11:03)
[2019-08-14] MEDS: NICOTINE 7 MG/24 HOURS TOPICAL PATCH TD SCH (11:04)
[2019-08-14] MEDS: amLODIPine BESYLATE 10 MG TABLET (FP) PO SCH (11:04)
[2019-08-14] MEDS: HYDROCHLOROTHIAZIDE 12.5 MG CAPSULE (FP) PO SCH (11:04)
[2019-08-14] MEDS: ZIPRASIDONE 40 MG CAPSULE (FP) PO SCH (11:04)
[2019-08-14] MEDS: PRENATAL VITAMINS W/ FOLIC ACID TABLET (FP) PO SCH (11:05)
[2019-08-14] MEDS: THIAMINE HCL 100 MG TABLET (FP) PO SCH (21:51)
[2019-08-14] MEDS: MELATONIN 5 MG TABLETS PO PRN (21:51)
[2019-08-15] MEDS: HYDROCHLOROTHIAZIDE 12.5 MG CAPSULE (FP) PO SCH (10:35)
[2019-08-15] MEDS: amLODIPine BESYLATE 10 MG TABLET (FP) PO SCH (10:35)
[2019-08-15] MEDS: NICOTINE 7 MG/24 HOURS TOPICAL PATCH TD SCH (10:35)
[2019-08-15] MEDS: BENZTROPINE MESYLATE 1 MG TABLET (FP) PO SCH (10:35)
[2019-08-15] MEDS: PRENATAL VITAMINS W/ FOLIC ACID TABLET (FP) PO SCH (10:35)
[2019-08-15] MEDS: ZIPRASIDONE 40 MG CAPSULE (FP) PO SCH (10:36)
[2019-08-15] MEDS: ASPIRIN COATED 81 MG TABLET.EC PO SCH (10:36)
[2019-08-15] MEDS: MELATONIN 5 MG TABLETS PO PRN (21:54)
[2019-08-15] MEDS: THIAMINE HCL 100 MG TABLET (FP) PO SCH (21:54)
[2019-08-16] MEDS: ASPIRIN COATED 81 MG TABLET.EC PO SCH (10:43)
[2019-08-16] MEDS: amLODIPine BESYLATE 10 MG TABLET (FP) PO SCH (10:43)
[2019-08-16] MEDS: HYDROCHLOROTHIAZIDE 12.5 MG CAPSULE (FP) PO SCH (10:43)
[2019-08-16] MEDS: BENZTROPINE MESYLATE 1 MG TABLET (FP) PO SCH (10:43)
[2019-08-16] MEDS: ZIPRASIDONE 40 MG CAPSULE (FP) PO SCH (10:43)
[2019-08-16] MEDS: NICOTINE 7 MG/24 HOURS TOPICAL PATCH TD SCH (10:46)
[2019-08-16] MEDS: PRENATAL VITAMINS W/ FOLIC ACID TABLET (FP) PO SCH (10:57)
--- NOTE | 2019-08-16 13:05 | PN ---
[facility] Progress Note Note: Patient is scheduled for discharge tomorrow. Scripts for 30 days supply of medications(Geodon 40 mg/day, Cogentin 2 mg/day) will be electronically transmitted to [facility] at [address] [place] [id number]
[2019-08-16] MEDS: MELATONIN 5 MG TABLETS PO PRN (21:41)
[2019-08-16] MEDS: THIAMINE HCL 100 MG TABLET (FP) PO SCH (21:41)
[2019-08-17 07:03] VITALS: BP 160/89; PULSE 79; TEMP 97.2
[2019-08-17] MEDS: HYDROCHLOROTHIAZIDE 12.5 MG CAPSULE (FP) PO SCH (09:58)
[2019-08-17] MEDS: PRENATAL VITAMINS W/ FOLIC ACID TABLET (FP) PO SCH (09:59)
[2019-08-17] MEDS: BENZTROPINE MESYLATE 1 MG TABLET (FP) PO SCH (09:59)
[2019-08-17] MEDS: NICOTINE 7 MG/24 HOURS TOPICAL PATCH TD SCH (09:59)
[2019-08-17] MEDS: ASPIRIN COATED 81 MG TABLET.EC PO SCH (09:59)
[2019-08-17] MEDS: amLODIPine BESYLATE 10 MG TABLET (FP) PO SCH (09:59)
[2019-08-17] MEDS: ZIPRASIDONE 40 MG CAPSULE (FP) PO SCH (09:59)
--- NOTE | 2019-08-17 10:11 | DS ---
[facility] Rehab Discharge Summary - [facility] Rehab Discharge Summary Admission Date: 08/03/19 Discharge Date: 08/17/19 - History Present History: Alcohol dependence, Cannabis dependence, Cocaine dependence Additional Comments: Pt is a 48 y/o male admitted to rehab for ALEJA after completion of detox on . Pt is discharged today for CD follow up after rehab stay. Pertinent Past History: HTN Hx Schizophrenia and Depression - Discharge Physical Exam Vital Signs: Vital Signs Temperature 97.2 F L 08/17/19 07:02 Pulse Rate 79 08/17/19 07:02 Respiratory Rate 18 08/17/19 07:02 Blood Pressure 160/89 08/17/19 07:02 O2 Sat by Pulse Oximetry (%) Alert o x 3 Nad oob ambulating with steady gait cardiac:s1 s2, rrr. Lungs:cta,chance. Abdomen:soft,+bs,nt,nd Extremities/Skin:No edema,Full ROM, skin intact Pertinent Admission Physical Exam Findings: Laboratory Tests 08/03/19 08/03/19 08/03/19 09:00 09:00 09:00 WBC 8.0 RBC 4.57 Hgb 13.8 Hct 42.2 MCV 92.4 MCH 30.2 MCHC 32.7 RDW 15.3 Plt Count 285 MPV 8.8 Sodium 137 Potassium 3.8 Chloride 101 Carbon Dioxide 29 Anion Gap 7 L BUN 12.3 Creatinine 1.1 Est GFR (CKD-EPI)AfAm 90.24 Est GFR (CKD-EPI)NonAf 77.86 Random Glucose 89 Calcium 9.0 Total Bilirubin 0.4 AST 51 H ALT 41 Alkaline Phosphatase 61 Ammonia Total Protein 7.3 Albumin 3.7 Urine Color Urine Appearance Urine pH Ur Specific Howard Urine Protein Urine Glucose (UA) Urine Ketones Urine Blood Urine Nitrite Urine Bilirubin Urine Urobilinogen Ur Leukocyte Esterase RPR Titer Nonreactive 08/05/19 08/05/19 11:15 11:20 WBC RBC Hgb Hct MCV MCH MCHC RDW Plt Count MPV Sodium Potassium Chloride Carbon Dioxide Anion Gap BUN Creatinine Est GFR (CKD-EPI)AfAm Est GFR (CKD-EPI)NonAf Random Glucose Calcium Total Bilirubin AST ALT Alkaline Phosphatase Ammonia 26.00 Total Protein Albumin Urine Color Yellow Urine Appearance Clear Urine pH 7.0 Ur Specific Howard 1.022 Urine Protein Negative Urine Glucose (UA) Negative Urine Ketones Negative Urine Blood Negative Urine Nitrite Negative Urine Bilirubin Negative Urine Urobilinogen 0.2 Ur Leukocyte Esterase Negative RPR Titer - Treatment Discharge Condition: Discharge condition good Hospital Course: rehabilitated safely and responded well. CD aftercare referral accepted - Medication Discharge Medications: Ambulatory Orders Amlodipine Besylate 10 mg PO DAILY 07/27/19 Aspirin EC 81 mg PO DAILY 07/27/19 Folic Acid 1 mg PO DAILY 08/03/19 Hydrochlorothiazide 12.5 mg PO DAILY 08/11/19 Benztropine Mesylate [Cogentin -] 2 mg PO DAILY #30 tablet 08/16/19 Ziprasidone [Geodon -] 40 mg PO DAILY #30 capsule 08/16/19 - Medication-Assisted Treatment (MAT) Medication-Assisted Treatment (MAT): No - Discharge Instructions Diet, activity, other medical instructions: Diet:Low salt diet Activity: oob ad mark Other medical instructions:Follow up with medical/psych care with [facility] for management. Follow up with CD aftercare with [facility] as recommended. - Diagnosis (1) Alcohol dependence Status: Chronic Qualifiers: Substance use status: uncomplicated Qualified Code(s): F10.20 - Alcohol dependence, uncomplicated (2) Cannabis dependence Status: Chronic (3) Cocaine dependence, uncomplicated Status: Chronic (4) Nicotine dependence Status: Chronic Qualifiers: Nicotine product type: cigarettes Substance use status: uncomplicated Qualified Code(s): F17.210 - Nicotine dependence, cigarettes, uncomplicated (5) HTN (hypertension) Status: Chronic Qualifiers: Hypertension type: essential hypertension Qualified Code(s): I10 - Essential (primary) hypertension - Follow-up Referral Minutes to complete discharge: 25 - AMA Did Patient Leave Against Medical Advice: No Additional Comments: Pt is Homeless having recently lost his housing and has been referred to [address] [place], [place] for housing. Pt stated he has all his blood pressure medications in his luggage in security property and has no need for courtesy medications at this time. Pt will follow up with his existing [facility] doctors for Psych/medical management.
== END 2019-08-17 10:25 | disposition home or self-care (01) | DRG 772 ==
LOC: YASAS 08:19 → Y5N 09:29
PROVIDERS: ADMIT Neuromusculoskeletal Medicine & OMM; ATTEND Neuromusculoskeletal Medicine & OMM
PROC: HZ42ZZZ Group Counseling for Substance Abuse Treatment, Cognitive-Behavioral (ICD-10-PCS; principal; 2019-08-03)
DX: F10.20 Alcohol dependence, uncomplicated (principal); F14.20 Cocaine dependence, uncomplicated; F12.20 Cannabis dependence, uncomplicated; F17.210 Nicotine dependence, cigarettes, uncomplicated; F25.0 Schizoaffective disorder, bipolar type; F41.9 Anxiety disorder, unspecified; F32.9 Major depressive disorder, single episode, unspecified; I10 Essential (primary) hypertension; R76.11 Nonspecific reaction to tuberculin skin test without active tuberculosis
CPT/HCPCS: 36415; 80053; 81003; 82140; 85027; 86593; J0735